=== PATIENT | female | born 1945 ===

== ENCOUNTER 2017-08-13 07:52 | Emergency (ER) | payer MEDICARE, OTHER ==
[2017-08-13 08:00] VITALS: RESP 18; TEMP 97.9; O2SAT 98
--- NOTE | 2017-08-13 08:58 | RAD ---
Chest x-ray two views History: Chest pain. Comparison: None available. Findings: Diffuse increased interstitial lung markings. Right hilar prominence. Elevated right hemidiaphragm. Mammilated bilateral hemidiaphragms. Small nodular density at the left lung base. Tortuous ectatic aorta with calcification at the aortic knob. Degenerative changes spine and shoulders. Impression: Diffuse increased interstitial lung markings. Right hilar prominence. Elevated right hemidiaphragm. Mammilated bilateral hemidiaphragms. Small nodular density at the left lung base. Tortuous ectatic aorta with calcification at the aortic knob.
[2017-08-13 09:17] LABS: BASO % 0.6 % (0.0-2.0); EOS # 0.1 K/uL (0.0-0.7); EOS % 2.6 % (0.0-4.0); HEMOGLOBIN 13.8 g/dL (11.0-16.0); LYMPH # 1.4 K/uL (1.0-4.3); LYMPH % 28.2 % (20.0-40.0); MEAN CELL VOLUME 85.6 fL (81.0-99.0); MEAN CORPUSCULAR HEMOGLOBIN 29.3 pg (27.0-31.0); MEAN CORPUSCULAR HGB CONC 34.2 g/dL (33.0-37.0); MEAN PLATELET VOLUME 10.8 fL (7.2-11.7); MONO # 0.5 K/uL (0.0-0.8); MONO % 9.6 % (0.0-10.0); NEUT # 2.9 K/uL (1.8-7.0); NRBC % 0.1 % (0.0-2.0); RBC 4.72 Mil/uL (3.80-5.20); RED CELL DISTRIBUTION WIDTH 13.3 % (11.5-14.5); WHITE BLOOD COUNT 4.8 K/uL (4.8-10.8)
[2017-08-13 09:31] LABS: ALB/GLOB RATIO 1.2 (1.0-2.1); ALBUMIN 3.9 g/dL (3.5-5.0); ALT/SGPT 19 U/L (9-52); AST/SGOT 28 U/L (14-36); BLOOD UREA NITROGEN 13 mg/dL (7-17); CALCIUM 9.4 mg/dl (8.6-10.4); GFR AFRICAN-AMERICAN > 60; GFR NON-AFRICAN AMERICAN > 60; LIPASE 69 U/L (23-300)
[2017-08-13 09:32] LABS: SQUAMOUS EPITHIAL 1 /hpf (0-5); URINE BILIRUBIN NEGATIVE (NEGATIVE); URINE BLOOD NEGATIVE (NEGATIVE); URINE CLARITY Clear (Clear); URINE COLOR Yellow (YELLOW); URINE GLUCOSE (UA) NORMAL (Normal); URINE LEUKOCYTE ESTERASE NEG Leu/uL (Negative); URINE PROTEIN NEGATIVE (NEGATIVE)
[2017-08-13 09:42] LABS: B-TYPE NATRIURETIC PEPTIDE 82.4 pg/mL (0-900)
[2017-08-13] MEDS ORDERED: Potassium Chloride 20 mEq ER Tab PO SCH (10:00)
[2017-08-13] MEDS ORDERED: Potassium Chloride 20 mEq ER Tab PO ONE ×2 (10:06→10:14)
--- NOTE | 2017-08-13 11:48 | C.PDOC ---
History Of Present Illness 71yo female, presents to ED with complaints of sore throat, nonproductive cough with associated mild epigastric discomfort since the past 6 days. She denies any associated nausea, vomiting, and diarrhea. She states she saw her PMD who prescribed her antibiotics (cannot recall name) which she has been taking with no relief. She denies any chest pain or shortness of breath as well. She has no other medical complaints. Time Seen by Provider: 08/13/17 08:10 Chief Complaint (Nursing): ENT Problem History Per: Patient History/Exam Limitations: no limitations Onset/Duration Of Symptoms: Days (6) Location Of Pain: Throat Associated Symptoms: Cough Additional History Per: Patient Past Medical History Reviewed: Historical Data, Nursing Documentation, Vital Signs Vital Signs: Last Vital Signs Temp 97.9 F 08/13/17 07:58 Pulse 70 08/13/17 07:58 Resp 18 08/13/17 07:58 BP 153/67 H 08/13/17 07:58 Pulse Ox 98 08/13/17 12:53 - Medical History PMH: HTN, Hypercholesterolemia, Kidney Stones Surgical History: Appendectomy Family History: States: No Known Family Hx - Social History Hx Tobacco Use: No Hx Alcohol Use: No Hx Substance Use: No Review Of Systems Except As Marked, All Systems Reviewed And Found Negative. ENT: Positive for: Throat Pain Cardiovascular: Negative for: Chest Pain Respiratory: Positive for: Cough. Negative for: Shortness of Breath, Sputum Gastrointestinal: Positive for: Abdominal Pain. Negative for: Nausea, Vomiting , Diarrhea Physical Exam - Physical Exam Appears: Non-toxic, No Acute Distress Skin: Normal Color, Warm, Dry Head: Atraumatic, Normacephalic Ear(s): Bilateral: Normal Oral Mucosa: Moist Throat: Normal, No Erythema, No Exudate Neck: Normal ROM, Supple Chest: Symmetrical Cardiovascular: Rhythm Regular Respiratory: Normal Breath Sounds, No Rales, No Rhonchi, No Wheezing Gastrointestinal/Abdominal: Normal Exam, Soft, No Tenderness, No Guarding, No Rebound Back: Normal Inspection Extremity: Normal ROM, No Pedal Edema Neurological/Psych: Oriented x3 ED Course And Treatment - Laboratory Results Result Diagrams: 08/13/17 09:09 08/13/17 09:09 ECG: Interpreted By Me, Viewed By Me ECG Rhythm: Sinus Rhythm Interpretation Of ECG: PAC's. Normal axis, normal intervals Rate From EC O2 Sat by Pulse Oximetry: 98 (RA) Pulse Ox Interpretation: Normal Medical Decision Making Medical Decision Making: Impression: URI Plan: -- Labs -- CXR -- EKG -- Toradol 30mg IV -- Protonix 40mg IV -- 30mg PO Progress: 1103 While reassessing patient, she took off her sunglasses and provider noted ecchymosis to her left periorbital region. When asked about the injury, patient reports she tripped and fell 08/08/17. States she was evaluated at that time and had a Head CT but no orbits study. She denies any loss of consciousness or change in affect. CT Maxillofacial/Orbits ordered Disposition - Disposition Disposition Time: 12:53 Condition: STABLE Forms: [facility] [employer] (Cape Verdean) - Clinical Impression Clinical Impression: Facial contusion - Scribe Statement The provider has reviewed the documentation as recorded by the Scribe (Cayla Villareal) Provider Attestation: All medical record entries made by the Scribe were at my direction and personally dictated by me. I have reviewed the chart and agree that the record accurately reflects my personal performance of the history, physical exam, medical decision making, and the department course for this patient. I have also personally directed, reviewed, and agree with the discharge instructions and disposition. Physician Patient Turnover Patient Signed Over To: Luna Yanez Handoff Comments: pending ct scan, reevaluation and disposition
--- NOTE | 2017-08-13 12:53 | CT ---
PROCEDURE: CT MAXILLOFACIAL BONES WITHOUT CONTRAST HISTORY: Status post fall. COMPARISON: None TECHNIQUE: Contiguous axial CT images of the maxillofacial bones were obtained. Coronal and sagittal reformats were generated. Radiation dose: Total exam DLP = 489.15 mGy-cm. This CT exam was performed using one or more of the following dose reduction techniques: Automated exposure control, adjustment of the mA and/or kV according to patient size, and/or use of iterative reconstruction technique. FINDINGS: NASAL BONES: Unremarkable. ORBITS: Phthisis bulbi right globe. Changes of left-sided cataract surgery. PARANASAL SINUSES/ MASTOIDS: The paranasal sinuses are well-developed. There is mild mucosal thickening in the right maxillary sinus. The right ostiomeatal complex appears occluded. No significant mucoperiosteal inflammatory changes left maxillary sinus. Left ostiomeatal complex patent. There is mild mucosal thickening in the ethmoid air complex extending superiorly into the inferior margin of the frontal sinus. MAXILLA: Age-indeterminate fracture of the anterior nasal spine of the maxilla. Maxilla otherwise intact. MANDIBLE/ TEMPOROMANDIBULAR JOINTS: Unremarkable. SKULL BASE: Unremarkable. TEMPORAL BONES: Middle ears and mastoid grossly unremarkable. OTHER FINDINGS: Vascular calcifications both carotid siphons and to a lesser degree vertebral arteries. . IMPRESSION: Age-indeterminate fracture anterior nasal spine of the maxilla. Otherwise the maxillofacial skeleton appears intact. Phthisis bulbi right globe. Mild mucoperiosteal inflammatory changes within the right maxillary sinus and ethmoid air complex as detailed above.
[2017-08-13 15:18] VITALS: BP 176/66; PULSE 60
--- NOTE | 2017-08-15 12:08 | CARD ---
APPROVED REPORT EKG Measurement Heart [id number] <Conclusion> Sinus rhythm with premature atrial complexes Low voltage QRS Borderline ECG
== END 2017-08-13 15:17 | disposition home or self-care (01) ==
LOC: C.ER 07:52
DX: J02.9 Acute pharyngitis, unspecified (principal); S02.92XG Unspecified fracture of facial bones, subsequent encounter for fracture with delayed healing; S05.12XD Contusion of eyeball and orbital tissues, left eye, subsequent encounter; W01.0XXD Fall on same level from slipping, tripping and stumbling without subsequent striking against object, subsequent encounter; E87.6 Hypokalemia
CPT/HCPCS: 70480; 71046; 80053; 81001; 83690; 83880; 84484; 85025; 93005; 96374; 96375; 99285; C9113; J1885

== ENCOUNTER 2017-09-21 13:12 | Emergency (ER) | payer MEDICARE, OTHER ==
[2017-09-21 13:22] VITALS: BP 166/75; PULSE 66; RESP 18; TEMP 98.4; O2SAT 99
--- NOTE | 2017-09-21 13:56 | C.PDOC ---
History Of Present Illness Patient is a 71 year old female with past medical history of Hypertension, Diabetes Mellitus, HLD, gastritis who presents to the ED for cough, shortness of breath and sore throat that started two weeks ago. Patient states that she was in the [place] when she started experiencing these symptoms. She states that her daughter gave her some antibiotics (name unknown) that she took for 3 days with no improvement in symptoms. [place] and saw her PMD Dr Grant on Thursday who prescribed her Medrol dose kayli and Promethazine DM. Patient states that her symptoms have not improved which prompted the ED visit. Cough is non-productive. Denies sick contacts, headaches, dizziness, chest pain, palpitations, abdominal pain, urinary symptoms , changes in bowel habits. Time Seen by Provider: 09/21/17 13:26 Chief Complaint (Nursing): Cough, Cold, Congestion History Per: Patient History/Exam Limitations: no limitations Onset/Duration Of Symptoms: Days Current Symptoms Are (Timing): Still Present Location Of Pain: Throat Sick Contacts (Context): None Associated Symptoms: Sore Throat, Cough. denies: Fever, Chills, Sputum, Nausea , Vomiting, Diarrhea Pain Scale Rating Of: 0 Recent travel outside of the [place]: Yes Past Medical History Vital Signs: Last Vital Signs Temp 98.4 F 09/21/17 13:18 Pulse 66 09/21/17 13:18 Resp 18 09/21/17 13:18 BP 166/75 H 09/21/17 13:18 Pulse Ox 99 09/21/17 14:54 - Medical History PMH: HTN, Hypercholesterolemia, Kidney Stones, Chronic Kidney Disease Surgical History: Appendectomy, Cholecystectomy Other Surgeries: Retinal Surgery Family History: States: [place] - Social History Hx Tobacco Use: No Hx Alcohol Use: No Hx Substance Use: No Physical Exam - Physical Exam Appears: Non-toxic, No Acute Distress Skin: Normal Color, Warm, Dry Head: Atraumatic, Normacephalic Eye(s): bilateral: Normal Inspection Ear(s): Bilateral: Normal Nose: Normal Oral Mucosa: Moist Tongue: Normal Appearing Lips: Normal Appearing Throat: Normal, No Erythema, No Exudate Neck: Normal ROM, Supple Cardiovascular: Rhythm Regular Respiratory: Normal Breath Sounds, No Accessory Muscle Use, No Rales, No Rhonchi , No Wheezing Gastrointestinal/Abdominal: Normal Exam, Bowel Sounds, Soft, No Tenderness Back: Normal Inspection Extremity: Normal ROM, No Tenderness, No Calf Tenderness Neurological/Psych: Oriented x3, Normal Speech ED Course And Treatment O2 Sat by Pulse Oximetry: 99 - Radiology CXR: Viewed By Me CXR Interpretation: Yes: No Acute Disease. No: Infiltrates Progress Note: Explained to the patient that if her symptoms do not resolve, she may need to be taken off Valsartan. Patient advised to follow up with Primary Care Doctor. Disposition - Disposition Referrals: Filiberto Grant MD [Medical Doctor] - Disposition: HOME/ ROUTINE Disposition Time: 13:50 Condition: STABLE Additional Instructions: SEGUIMIENTO CON BRANCH MDICO EN 1-2 GALINDO USE MEDICAMENTO SEGN SEA NECESARIO PARA TOS HABLE CON BRANCH MD[place] ACERCA DE BRANCH MEDICACIN DE HIPERTENSIN, YA QUE PUEDE SER LA [place] DE BRANCH TOS REGRESE AL DERRELL DE EMERGENCIA SI LOS SNTOMAS EMPEORAN Prescriptions: Benzonatate [Tessalon Perles] 100 mg PO BID PRN #15 sgl PRN Reason: Cough Instructions: Upper Respiratory Infection (ED) Forms: [employer] (Latvian), [employer] (Cook Islander) Print Language: OCCITAN - Clinical Impression Clinical Impression: Viral disease, Upper respiratory infection
--- NOTE | 2017-09-21 14:34 | RAD ---
Date of service: 09/21/2017 HISTORY: cough, r/o pneumonia COMPARISON: Chest radiograph dated 08/13/2017. TECHNIQUE: Chest PA and lateral FINDINGS: LUNGS: No active pulmonary disease. PLEURA: No significant pleural effusion identified. No pneumothorax apparent. CARDIOVASCULAR: Atherosclerotic aortic calcifications. Cardiomediastinal silhouette stably probe min. OSSEOUS STRUCTURES: Unchanged. VISUALIZED UPPER ABDOMEN: Normal. OTHER FINDINGS: None. IMPRESSION: No active disease.
== END 2017-09-21 15:03 | disposition home or self-care (01) ==
LOC: C.ER 13:12
DX: B34.9 Viral infection, unspecified (principal); J06.9 Acute upper respiratory infection, unspecified

== ENCOUNTER 2018-02-12 19:49 | Emergency (ER) | payer MEDICARE, OTHER ==
[2018-02-12 20:12] VITALS: TEMP 97.6
--- NOTE | 2018-02-12 20:48 | C.PDOC ---
History Of Present Illness Patient presents with increasing shortness of breath since yesterday. However patient is able to speak in complete sentences. No f/c/n/v, no chest pain or palpitations or prolonged trips or sitting. Time Seen by Provider: 02/12/18 20:47 Chief Complaint (Nursing): Shortness Of Breath History Per: Patient History/Exam Limitations: no limitations Onset/Duration Of Symptoms: Days Current Symptoms Are (Timing): Still Present Initiating Event: Upper Respiratory Illness Exacerbating Factor(s): Coughing Current Respiratory Medications: See Home Med List Severity: Moderate Pain Scale Rating Of: 4 Associated Symptoms: denies: Chest Pain, Productive Cough Reports Recently: Treated By A Physician Recent travel outside of the [place]: No Additional History Per: Patient Past Medical History Reviewed: Historical Data, Nursing Documentation, Vital Signs Vital Signs: Last Vital Signs Temp 97.6 F 02/12/18 20:08 Pulse 64 02/12/18 20:08 Resp 18 02/12/18 20:08 BP 190/72 H 02/12/18 20:08 Pulse Ox 99 02/12/18 20:08 - Medical History PMH: Depression, Gastritis, HTN, Hypercholesterolemia, Kidney Stones, Chronic Kidney Disease Surgical History: Appendectomy, Cholecystectomy Family History: States: [place] - Social History Hx Tobacco Use: No Hx Alcohol Use: No Hx Substance Use: No Review Of Systems Constitutional: Negative for: Fever, Chills ENT: Negative for: Throat Pain Cardiovascular: Negative for: Chest Pain Respiratory: Positive for: Shortness of Breath, Wheezing Gastrointestinal: Negative for: Abdominal Pain Musculoskeletal: Negative for: Back Pain Skin: Negative for: Rash Neurological: Negative for: Weakness Psych: Negative for: Anxiety Physical Exam - Physical Exam Appears: Non-toxic, No Acute Distress Skin: Warm, Dry Head: Normacephalic Eye(s): bilateral: Normal Inspection Oral Mucosa: Moist Neck: Supple Chest: Symmetrical Cardiovascular: Rhythm Regular Respiratory: Decreased Breath Sounds, No Rales, No Rhonchi, Wheezing (few) Gastrointestinal/Abdominal: Soft, No Tenderness, No Distention Back: Normal Inspection Extremity: Normal ROM Extremity: Bilateral: Atraumatic Neurological/Psych: Oriented x3 Gait: Steady ED Course And Treatment - Laboratory Results Result Diagrams: 02/12/18 21:15 02/12/18 21:15 ECG: Interpreted By Me, Viewed By Me ECG Rhythm: Sinus Rhythm (68), Nonspecific Changes O2 Sat by Pulse Oximetry: 99 Pulse Ox Interpretation: Normal - Radiology CXR: Interpreted by Me, Viewed By Me CXR Interpretation: Yes: Other (unchanged from 09/21/17). No: Infiltrates, Fracture, Pnemothorax Reevaluation Time: 22:54 Reassessment Condition: Improved Disposition Counseled Patient/Family Regarding: Studies Performed, Diagnosis, Need For Followup - Disposition Referrals: Filiberto Grant MD [Primary Care Provider] - Disposition: HOME/ ROUTINE Disposition Time: 20:47 Condition: FAIR Additional Instructions: Please return if symptoms recur Prescriptions: Albuterol HFA [Ventolin HFA 90 mcg/actuation (8 g)] 2 puff IH [id number] #1 puff Azithromycin [Zithromax Tri-Kunal] 500 mg PO DAILY #3 tablet Prednisone [Deltasone] 20 mg PO DAILY #5 tablet Instructions: Acute Bronchitis, Adult (DC) Forms: [employer] (Portuguese) Print Language: SINHALA - Clinical Impression Clinical Impression: Bronchitis
[2018-02-12] MEDS ORDERED: Albuterol-Ipratrop 3 mg / 0.5 (3 ml) UD ONE (21:07)
[2018-02-12 21:20] LABS: BASO % 0.6 % (0.0-2.0); EOS # 0.1 K/uL (0.0-0.7); EOS % 1.1 % (0.0-4.0); HEMOGLOBIN 13.2 g/dL (11.0-16.0); LYMPH # 2.6 K/uL (1.0-4.3); LYMPH % 42.9 % (20.0-40.0); MEAN CELL VOLUME 85.1 fL (81.0-99.0); MEAN CORPUSCULAR HEMOGLOBIN 28.2 pg (27.0-31.0); MEAN CORPUSCULAR HGB CONC 33.2 g/dL (33.0-37.0); MONO # 0.4 K/uL (0.0-0.8); MONO % 6.3 % (0.0-10.0); NEUT % 49.1 % (50.0-75.0); NRBC % 0.1 % (0.0-2.0); RBC 4.69 Mil/uL (3.80-5.20); RED CELL DISTRIBUTION WIDTH 13.2 % (11.5-14.5); WHITE BLOOD COUNT 6.2 K/uL (4.8-10.8)
[2018-02-12 21:28] LABS: PROTHROMBIN TIME 11.1 SECONDS (9.7-12.2)
[2018-02-12 21:29] LABS: ABG ALLEN TEST PO; ARTERIAL BLOOD GAS HCO3 27.9 mmol/L (21-28); ARTERIAL BLOOD GAS O2 SAT 99.2 % (95-98); ARTERIAL BLOOD GAS PCO2 32 mm/Hg (35-45); ARTERIAL BLOOD GAS PH 7.52 (7.35-7.45); ARTERIAL BLOOD GAS PO2 150 mm/Hg (80-100); ARTERIAL BLOOD GAS TCO2 27.1 mmol/L (22-28)
[2018-02-12 21:37] LABS: ALB/GLOB RATIO 1.7 (1.0-2.1); ALBUMIN 4.3 g/dL (3.5-5.0); ALT/SGPT 29 U/L (9-52); AST/SGOT 24 U/L (14-36); BLOOD UREA NITROGEN 17 mg/dL (7-17); CALCIUM 9.8 mg/dl (8.6-10.4); GFR NON-AFRICAN AMERICAN > 60
[2018-02-12] MEDS: Albuterol-Ipratrop 3 mg / 0.5 (3 ml) UD IH SCH (21:44)
[2018-02-12 21:47] LABS: B-TYPE NATRIURETIC PEPTIDE 65.8 pg/mL (0-900)
[2018-02-12 22:03] LABS: SQUAMOUS EPITHIAL < 1 /hpf (0-5); URINE BACTERIA RARE (<OCC); URINE BILIRUBIN NEGATIVE (NEGATIVE); URINE BLOOD NEGATIVE (NEGATIVE); URINE CLARITY Clear (Clear); URINE COLOR Straw (YELLOW); URINE GLUCOSE (UA) 1+ mg/dL (Normal); URINE LEUKOCYTE ESTERASE NEG Leu/uL (Negative); URINE PROTEIN NEGATIVE (NEGATIVE); URINE UROBILINOGEN NORMAL mg/dL (0.2-1.0)
[2018-02-12 22:40] VITALS: BP 152/73; PULSE 82; RESP 19
[2018-02-12 22:58] VITALS: O2SAT 99
--- NOTE | 2018-02-13 11:49 | RAD ---
Date of service: 02/12/2018 PROCEDURE: CHEST RADIOGRAPH, 1 VIEW HISTORY: SOB COMPARISON: 09/21/2017 FINDINGS: LUNGS: The lungs are well inflated and clear. PLEURA: No pneumothorax or pleural effusion. CARDIOVASCULAR: The heart is normal in size. No aortic atherosclerotic calcifications present. OSSEOUS STRUCTURES: Within normal limits for the patient's age. VISUALIZED UPPER ABDOMEN: Normal. OTHER FINDINGS: None. IMPRESSION: No active pulmonary disease.
--- NOTE | 2018-02-16 19:06 | CARD ---
APPROVED REPORT Date of service: 02/12/2018 EKG Measurement Heart [id number] <Conclusion> Normal sinus rhythm Normal ECG
== END 2018-02-12 23:13 | disposition home or self-care (01) ==
LOC: C.ER 19:49 → SUPCPDRO 19:49 → C.ER 23:13
DX: J40 Bronchitis, not specified as acute or chronic (principal)

== ENCOUNTER 2018-03-07 18:11 | Emergency (ER) | payer MEDICARE, OTHER ==
[2018-03-07 19:29] LABS: INFLUENZA A B NEGATIVE FOR FLU A/B (NEGATIVE)
--- NOTE | 2018-03-07 20:06 | C.PDOC ---
History Of Present Illness 72 year old female presents to the ED for evaluation of body aches, mild non- productive cough, headache, sore throat and 2 episodes of nausea and vomiting today. Patient denies diarrhea, dysuria/hematuria, ear pain, abdominal pain, chest pain, SOB, palpitations. Time Seen by Provider: 03/07/18 19:02 Chief Complaint (Nursing): Headache History Per: Patient History/Exam Limitations: no limitations Onset/Duration Of Symptoms: Hrs Current Symptoms Are (Timing): Still Present Severity: Mild Past Medical History Reviewed: Historical Data, Nursing Documentation, Vital Signs Vital Signs: Last Vital Signs Temp 97.7 F 03/07/18 18:20 Pulse 77 03/07/18 18:20 Resp 18 03/07/18 18:20 BP 174/83 H 03/07/18 18:20 Pulse Ox 97 03/07/18 18:20 - Medical History PMH: Depression, Gastritis, HTN, Hypercholesterolemia, Kidney Stones, Chronic Kidney Disease Surgical History: Appendectomy, Cholecystectomy Family History: States: [place] - Social History Hx Tobacco Use: No Hx Alcohol Use: No Hx Substance Use: No Review Of Systems Constitutional: Positive for: Malaise, Other (body aches. ) ENT: Positive for: Throat Pain. Negative for: Ear Pain Cardiovascular: Negative for: Chest Pain, Palpitations Respiratory: Positive for: Cough ( non-productive cough. ). Negative for: Shortness of Breath Gastrointestinal: Positive for: Nausea, Vomiting. Negative for: Abdominal Pain, Diarrhea Genitourinary: Negative for: Dysuria, Hematuria Skin: Negative for: Rash Neurological: Positive for: Headache Physical Exam - Physical Exam Appears: Well, Non-toxic, No Acute Distress Skin: Normal Color, Warm, Dry Head: Normacephalic Eye(s): bilateral: Normal Inspection Ear(s): Bilateral: Normal Oral Mucosa: Moist Throat: Normal, No Erythema, No Exudate Cardiovascular: Rhythm Regular Respiratory: Normal Breath Sounds, No Rales, No Rhonchi, No Wheezing Gastrointestinal/Abdominal: Bowel Sounds, Soft, Tenderness ((+) mild epigastric TTP ), No Other ((-) [place], (-) McBurney's) Back: Normal Inspection, No CVA Tenderness Extremity: Normal ROM Neurological/Psych: Oriented x3 ED Course And Treatment O2 Sat by Pulse Oximetry: 97 (RA) Pulse Ox Interpretation: Normal Progress Note: Strep swab and influenza swabs, accucheck ordered and reviewed. Patient given PO Tylenol, PO Pepcid and PO Zofran ODT. Reevaluation Time: 20:00 Reassessment Condition: Improved (Patient reassessed, is resting comfortable and states she feels better. On exam, abdomen is soft and nontender. Suspect viral syndrome - patient given Rxs for Zofran, Naprosyn and Chloraseptic spray. She understands she should return to ED if symptoms worsen.) Disposition Counseled Patient/Family Regarding: Studies Performed, Diagnosis, Need For Followup, Rx Given - Disposition Referrals: Filiberto Grant MD [Medical Doctor] - Disposition: HOME/ ROUTINE Disposition Time: 20:00 Condition: STABLE Additional Instructions: FOLLOW UP WITH YOUR DOCTOR IN 1-2 DAYS USE MEDICATIONS NEEDED DRINK PLENTY OF FLUIDS RETURN TO ER IF SYMPTOMS WORSEN SEGUIR CON BRANCH MDICO EN 1-2 GALINDO UTILICE MEDICAMENTOS DEANGELO SE NECESITE BEBER MUCHO LQUIDO REGRESAR A ER SI LOS SNTOMAS SE HACEN PEOR Instructions: Viral Syndrome (DC) Forms: [employer] (Micronesian) Print Language: KINYARWANDA - Clinical Impression Clinical Impression: Viral disease, Viral syndrome - Scribe Statement The provider has reviewed the documentation as recorded by the Scribe (Ibeth Tenorio) Provider Attestation: All medical record entries made by the Scribe were at my direction and personally dictated by me. I have reviewed the chart and agree that the record accurately reflects my personal performance of the history, physical exam, medical decision making, and the department course for this patient. I have also personally directed, reviewed, and agree with the discharge instructions and disposition.
[2018-03-07 20:30] VITALS: BP 174/75; PULSE 60; RESP 14; TEMP 98.4
[2018-03-07 21:40] VITALS: O2SAT 97
== END 2018-03-07 20:46 | disposition home or self-care (01) ==
LOC: C.ER 18:11
DX: B34.9 Viral infection, unspecified (principal); I12.9 Hypertensive chronic kidney disease with stage 1 through stage 4 chronic kidney disease, or unspecified chronic kidney disease; N18.9 Chronic kidney disease, unspecified; E78.00 Pure hypercholesterolemia, unspecified

== ENCOUNTER 2018-03-12 17:29 | Emergency (ER) | payer MEDICARE, OTHER ==
[2018-03-12 17:54] VITALS: O2SAT 97
--- NOTE | 2018-03-12 19:29 | C.PDOC ---
History Of Present Illness 72 year old female presents to the ED c/o generalized body aches, cough and congestion. Patient tolerating PO. Patient denies fever, chills, nausea, vomit, diarrhea, CP, palpitations, weakness, numbness. Time Seen by Provider: 03/12/18 19:29 Chief Complaint (Nursing): Shortness Of Breath History Per: Patient History/Exam Limitations: no limitations Onset/Duration Of Symptoms: Days Current Symptoms Are (Timing): Still Present Initiating Event: Upper Respiratory Illness Quality: "Pain" Exacerbating Factor(s): Coughing Current Respiratory Medications: See Home Med List Recent travel outside of the [place]: No Additional History Per: Patient Past Medical History Reviewed: Historical Data, Nursing Documentation, Vital Signs Vital Signs: Last Vital Signs Temp 98.3 F 03/12/18 17:50 Pulse 59 L 03/12/18 17:50 Resp 20 03/12/18 17:50 BP 179/80 H 03/12/18 17:50 Pulse Ox 97 03/12/18 17:50 - Medical History PMH: Depression, Gastritis, HTN, Hypercholesterolemia, Kidney Stones, Chronic Kidney Disease Surgical History: Appendectomy, Cholecystectomy Family History: States: Unknown Family Hx, [place] - Social History Hx Tobacco Use: No Hx Alcohol Use: No Hx Substance Use: No Review Of Systems Constitutional: Negative for: Fever, Chills ENT: Positive for: Nose Discharge, Nose Congestion Cardiovascular: Negative for: Chest Pain Respiratory: Positive for: Cough. Negative for: Shortness of Breath, Sputum Gastrointestinal: Negative for: Nausea, Vomiting, Abdominal Pain Skin: Negative for: Rash Neurological: Negative for: Weakness, Numbness Physical Exam - Physical Exam Appears: Non-toxic, No Acute Distress Skin: Warm, Dry Head: Normacephalic Eye(s): bilateral: Normal Inspection Ear(s): Bilateral: Normal Oral Mucosa: Moist Throat: No Erythema, No Exudate Neck: Supple Chest: Symmetrical Cardiovascular: Rhythm Regular Respiratory: No Rales, Rhonchi (scattered), No Wheezing Gastrointestinal/Abdominal: Soft, No Tenderness, No Guarding, No Rebound Extremity: Bilateral: Atraumatic, Normal Color And Temperature, Normal ROM Neurological/Psych: Oriented x3, Normal Speech, Normal Cognition Gait: Steady ED Course And Treatment - Laboratory Results Result Diagrams: 03/12/18 19:47 01/04/19 19:47 O2 Sat by Pulse Oximetry: 97 (ON RA) Pulse Ox Interpretation: Normal - Radiology CXR: Interpreted by Me, Viewed By Me CXR Interpretation: Yes: Other (unchanged from 02/12/18). No: Infiltrates, Fracture, Pnemothorax Progress Note: Plan: - VBG. - EKG. - Labs. - Albuterol. - IV fluid. - Blood culture. - Influenza A B. pt feels better and wants to go home Reevaluation Time: 21:08 Reassessment Condition: Improved Disposition Counseled Patient/Family Regarding: Studies Performed, Diagnosis, Need For Followup, Rx Given - Disposition Referrals: Filiberto Grant MD [Medical Doctor] - Disposition: HOME/ ROUTINE Disposition Time: 19:29 Condition: FAIR Additional Instructions: Please return if symptoms recur Prescriptions: Albuterol HFA [Ventolin HFA 90 mcg/actuation (8 g)] 2 puff IH [id number] #1 puff Azithromycin [Zithromax Tri-Kunal] 500 mg PO DAILY #3 tablet Instructions: Acute Bronchitis, Adult (DC) Forms: [employer] (Greek) Print Language: TURKS AND [place] ISLANDER - Clinical Impression Clinical Impression: Upper respiratory infection - Scribe Statement The provider has reviewed the documentation as recorded by the Scribe Crow Quinn All medical record entries made by the Scribe were at my direction and personally dictated by me. I have reviewed the chart and agree that the record accurately reflects my personal performance of the history, physical exam, medical decision making, and the department course for this patient. I have also personally directed, reviewed, and agree with the discharge instructions and disposition.
[2018-03-12] MEDS ORDERED: Sodium Chloride 0.9% 500 ML IV ONE (19:31)
[2018-03-12] MEDS ORDERED: Albuterol-Ipratrop 3 mg / 0.5 (3 ml) UD IH SCH (19:45)
[2018-03-12] MEDS ORDERED: Albuterol-Ipratrop 3 mg / 0.5 (3 ml) UD ONE (19:50)
[2018-03-12 19:51] LABS: BASO % 0.4 % (0.0-2.0); EOS # 0.1 K/uL (0.0-0.7); EOS % 1.3 % (0.0-4.0); LYMPH # 2.5 K/uL (1.0-4.3); LYMPH % 43.7 % (20.0-40.0); MEAN CELL VOLUME 85.2 fL (81.0-99.0); MEAN CORPUSCULAR HEMOGLOBIN 28.9 pg (27.0-31.0); MEAN CORPUSCULAR HGB CONC 33.9 g/dL (33.0-37.0); MEAN PLATELET VOLUME 9.8 fL (7.2-11.7); MONO # 0.5 K/uL (0.0-0.8); NEUT # 2.7 K/uL (1.8-7.0); NEUT % 46.6 % (50.0-75.0); NRBC % 0.1 % (0.0-2.0); RBC 4.83 Mil/uL (3.80-5.20); RED CELL DISTRIBUTION WIDTH 13.2 % (11.5-14.5); WHITE BLOOD COUNT 5.7 K/uL (4.8-10.8)
[2018-03-12 20:07] LABS: ALB/GLOB RATIO 1.5 (1.0-2.1); ALBUMIN 4.3 g/dL (3.5-5.0); ALT/SGPT 37 U/L (9-52); AST/SGOT 29 U/L (14-36); BLOOD UREA NITROGEN 18 mg/dL (7-17); CALCIUM 9.4 mg/dl (8.6-10.4); GFR NON-AFRICAN AMERICAN > 60
[2018-03-12 20:32] LABS: VENOUS BLOOD GAS BASE EXCESS 6.9 mmol/L (0.0-2.0); VENOUS BLOOD GAS PCO2 52 mmHg (40-60); VENOUS BLOOD GAS PO2 23 mm/Hg (30-55); VENOUS BLOOD PH 7.41 (7.32-7.43)
--- NOTE | 2018-03-12 20:56 | RAD ---
HISTORY: cough COMPARISON: Chest x-ray performed 02/12/18 TECHNIQUE: Chest, one view. FINDINGS: LUNGS: Increased lucencies especially within the bilateral upper lung bañuelos compatible with underlying emphysema. No focal consolidation. Please note that chest x-ray has limited sensitivity for the detection of pulmonary masses. PLEURA: No significant pleural effusion identified. No definite pneumothorax . CARDIOVASCULAR: Borderline cardiomegaly. Atherosclerotic calcification present. OSSEOUS STRUCTURES: Degenerative changes of the spine. VISUALIZED UPPER ABDOMEN: Unremarkable. OTHER FINDINGS: None. IMPRESSION: Emphysematous changes. Borderline cardiomegaly.
[2018-03-12 21:24] VITALS: BP 159/68; PULSE 81; RESP 16; TEMP 97.7
--- NOTE | 2018-03-15 12:23 | CARD ---
APPROVED REPORT Date of service: 03/12/2018 EKG Measurement Heart [id number] NM [id number] [id number] <Conclusion> Sinus bradycardia Otherwise normal ECG
== END 2018-03-12 21:42 | disposition home or self-care (01) ==
LOC: C.ER 17:29
DX: J06.9 Acute upper respiratory infection, unspecified (principal); E78.00 Pure hypercholesterolemia, unspecified; I12.9 Hypertensive chronic kidney disease with stage 1 through stage 4 chronic kidney disease, or unspecified chronic kidney disease; N18.9 Chronic kidney disease, unspecified
CPT/HCPCS: 71045; 80053; 82803; 85025; 87040; 87804; 93005; 94150; 99284; J7040